=== PATIENT | female | born 2000 | race Caucasian/White ===

== ENCOUNTER 2020-08-29 11:57 | Outpatient (REF) | payer MEDICAID, SELFPAY ==
[2020-08-31 14:27] LABS: H Pylori Breath Test NOT DETECTED (NOT DETECTED)
== END 2020-08-29 11:58 | disposition home or self-care (01) ==
LOC: HO.LNP 11:57
PROVIDERS: Visit Provider Internal Medicine Gastroenterology
DX: Z11.0 Encounter for screening for intestinal infectious diseases (principal)
CPT/HCPCS: 83013; 99211

== ENCOUNTER → 2020-10-10 13:23 | Outpatient (BNVA) | payer MEDICAID, SELFPAY | PROVIDERS: Visit Provider Internal Medicine Gastroenterology ==

== ENCOUNTER → 2021-01-02 11:39 | Outpatient (BNVA) | payer MEDICAID, SELFPAY | PROVIDERS: Visit Provider Internal Medicine Gastroenterology | DX: R13.10 Dysphagia, unspecified (principal); H53.2 Diplopia; R51.9 Headache, unspecified; G89.29 Other chronic pain | CPT/HCPCS: 99212 ==

== ENCOUNTER 2021-01-05 10:10 | Outpatient (REF) | payer MEDICAID, SELFPAY | END 2021-01-05 10:11 | disposition home or self-care (01) | LOC: HO.LAB 10:10 | PROVIDERS: PCP Nurse Practitioner Primary Care; Visit Provider Internal Medicine Gastroenterology | DX: R13.10 Dysphagia, unspecified (principal) | CPT/HCPCS: 36415; 86003 ==

== ENCOUNTER 2021-01-26 18:08 | Outpatient (REF) | payer MEDICAID, SELFPAY | END 2021-01-26 18:09 | disposition home or self-care (01) | LOC: HO.MRI 18:08 | PROVIDERS: Visit Provider Internal Medicine Gastroenterology | DX: Z13.89 Encounter for screening for other disorder (principal) ==

== ENCOUNTER 2021-04-18 11:01 | Outpatient (REF) | payer MEDICAID, SELFPAY ==
--- NOTE | ~2021-04-18 | MR_ITS ---
EXAMINATION: MR BRAIN WITHOUT AND WITH CONTRAST CLINICAL INFORMATION: Diplopia. COMPARISON: None. TECHNIQUE: Multiplanar, multisequence imaging of the brain was performed before and after the intravenous administration of 5.5 mL of Gadavist. Slightly limited examination with motion artifacts. FINDINGS: No diffusion abnormalities are identified to suggest an acute infarct. The ventricles are normal in size. No mass effect or midline shift is seen. No brain parenchymal signal abnormality is noted. No extra-axial fluid collections are seen. The brainstem and cerebellum are normal. There is no abnormal parenchymal or leptomeningeal enhancement. The pituitary axis structures and suprasellar cistern appear normal. The gradient refocused acquisition is normal. 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 The craniovertebral junction, marrow signal, and midline structures are normal. The major intracranial flow voids at the level of the tangirnaq of [place] are preserved. The dural venous sinus flow voids are maintained. The mastoid air cells are well aerated. Mild ethmoid sinus mucosal thickening noted. MR/MR head/brain wo/w con IMPRESSION: No acute process. Normal slightly limited MRI of the brain with motion artifacts.
== END 2021-04-18 11:02 | disposition home or self-care (01) ==
LOC: HO.MRI 11:01
PROVIDERS: PCP Nurse Practitioner Primary Care; Visit Provider Internal Medicine Gastroenterology
DX: H53.2 Diplopia (principal); R51.9 Headache, unspecified; R13.10 Dysphagia, unspecified; G89.29 Other chronic pain
CPT/HCPCS: 70553; A9585

== ENCOUNTER 2021-06-21 16:29 | Emergency (ER) | payer MEDICAID, SELFPAY ==
--- NOTE | ~2021-06-21 | XR_ITS ---
EXAMINATION: XR HAND, LEFT CLINICAL INFORMATION: Knife puncture COMPARISON: None TECHNIQUE: PA, lateral, and oblique views of the left hand. FINDINGS: Visualized portion of the distal radius and ulna demonstrate no fracture. Carpal rows are well-maintained. No carpal, metacarpal or phalangeal fracture. No focal soft tissue swelling. No appreciable degenerative changes. No radiopaque foreign body. XR/XR hand LT 2V IMPRESSION: Unremarkable radiographs of the left hand.
[2021-06-21 17:00] VITALS: BP 102/40; PULSE 68; RESP 18; TEMP 36.8; O2SAT 98; BMI 23.6
--- NOTE | 2021-06-21 19:23 | ED.WOUNDLAC ---
HPI - Wound/Laceration General Chief Complaint: Wound/Laceration Stated Complaint: hand laceration Source: patient Mode of arrival: ambulatory Limitations: no limitations History of Present Illness HPI narrative: 20-year-old female presents with puncture wound to the left thenar process. Patient was trying to open a package, slipped with a knife. Does not recall when her last Tdap vaccine was given. Onset (ago): hour(s) (Within the hour of arrival) Extremity Location: left: hand Place: home Patient tetanus UTD: No Context: accidental Associated symptoms: pain Treatments prior to arrival: bandage Related Data Previous Rx's Medication Instructions Recorded esomeprazole magnesium 40 mg 40 mg PO DAILY 30 Days #30 cap 01/02/21 capsule,delayed release metoclopramide HCl 5 mg/5 mL oral 5 mg PO BID #500 ml 01/02/21 solution sucralfate 100 mg/mL oral 10 ml PO BID #420 ml 01/02/21 suspension (Carafate) metoclopramide HCl 5 mg tablet 5 mg PO BID #60 tab 02/07/21 Allergies Allergy/AdvReac Type Severity Reaction Status Date / Time No Known Allergies Allergy Verified 06/21/21 17:00 [No Known Allergies*] Review of Systems Review of Systems: Constitutional: No Fever, No Chills ENT/Mouth: No Ear Pain, No Hoarseness, No sore throat Eyes: No Eye Pain, No Swelling, No Redness, No Foreign Body Cardiovascular: No Chest Pain, No SOB Respiratory: No Cough, No Dyspnea Gastrointestinal: No Nausea, No Vomiting, No Diarrhea, No abdominal Pain Genitourinary: No Dysuria, No Hematuria Musculoskeletal: positive left hand pain, No Myalgias, No Joint Swelling Skin: Positive laceration to the left thenar process, No rash Neuro: No Weakness, No Numbness, No Paresthesias, No Loss of Consciousness, No Dizziness, No Headache Psych: No Anxiety/Panic, No Depression Heme/Lymph: no easy bruising, no Lymphadenopathy Endocrine: No Polyuria, No Polydipsia Yes all other systems are reviewed and are negative [facility] Past Medical History Attestation statement: The following information was validated with the patient. Source: old records reviewed Surgical History History of esophagogastroduodenoscopy (EGD) Family History Family History Father Prostate CA Social History Social History Alcohol intake: never Substance Use Type: Marijuana Advance Directives: No Patient : No Physical Exam Vital Signs: Vital Signs: Last Vital Signs Temp 98.9 F 06/21/21 20:01 Pulse 68 06/21/21 20:01 Resp 18 06/21/21 17:00 BP 135/54 L 06/21/21 20:01 Pulse Ox 100 06/21/21 20:01 Body Mass Index 23.6 Appearance: Alert. Oriented X3. No acute distress. Eyes: Pupils equal, round and reactive to light. Sclera nonicteric. ENT: Pharynx normal. Moist mucous membranes. Neck: Normal inspection. Neck supple. CVS: Normal heart rate and rhythm. Pulses normal. Respiratory: No respiratory distress. Breath sounds normal. Abdomen: Soft and nontender. Skin: Skin warm and dry. Normal skin color. Normal skin turgor. Extremities: 2 cm puncture wound to the left thenar process. Full range of motion to all digits and wrist strength 5/5 to all extremities. Tender to palpation. Neuro: No motor deficit. No sensory deficit. Cranial nerves 2-12 intact. Course Course Course Narrative: 20-year-old female presents with puncture wound to the left thenar process. Is able to move all extremities against resistance, brisk capillary refill. Patient has full range of motion, low indication of tendon injury or laceration. Will order x-rays, and laceration repair. Will update Tdap vaccine at this time. No indication of foreign body. Prepped and draped in sterile fashion. Irrigated with copious amounts of normal saline. Three sutures applied. Please refer to procedure note for full details. Patient tolerated procedure well. Brisk capillary refill and equal pulses continue status post suture repair. Patient agrees to follow-up with hand surgery. Patient verbalized understanding of and agrees to plan of care discharge home. MDM - Wound/Laceration Differential Diagnosis Differential diagnosis: Likely laceration Medical Records Attestation: I reviewed the patient's medical records. Lab Data Attestation: I reviewed the patient's lab results. Imaging Data Left hand: Attestation: I personally reviewed and interpreted this imaging study as follows: Radiologist's impression: EXAMINATION: XR HAND, LEFT CLINICAL INFORMATION: Knife puncture? COMPARISON: None? TECHNIQUE: PA, lateral, and oblique views of the left hand. FINDINGS: Visualized portion of the distal radius and ulna demonstrate no fracture. Carpal rows are well-maintained. No carpal, metacarpal or phalangeal fracture. No focal soft tissue swelling. No appreciable degenerative changes. No radiopaque foreign body.? XR/XR hand LT 2V IMPRESSION: Unremarkable radiographs of the left hand. Procedures Laceration Laceration 1: Site: hand Side (If applicable): left Size (cm): 2 Description: linear Depth: simple, single layer Local Anesthetic: lidocaine 2% Amount of anesthesia used (mL): 3 Pre-repair: wound explored, irrigated extensively and deep structures intact Skin layer closed with: nylon Size (cm): 5-0 Number of sutures: 4 Technique: simple, interrupted Discharge Plan Discharge Clinical Impression: Laceration Patient Disposition: Home, Self-Care Instructions: Care For Your Stitches (ED), Laceration (ED) Additional Instructions: You were evaluated for puncture wound to the left hand. We applied for sutures. Please follow-up with Orthopedics and Hand specialist. Please return in 10 days to have sutures removed. Use Tylenol and Motrin as needed for pain management. Thank you for choosing this emergency department for evaluation. Please follow-up with primary care physician as needed. Return to the emergency department for any new, concerning, or worsening symptoms. Prescriptions: No Action metoclopramide HCl 5 mg tablet 5 mg PO BID Qty: 60 RF: 0 esomeprazole magnesium 40 mg capsule,delayed release(DR/EC) 40 mg PO DAILY 30 Days Qty: 30 RF: 3 sucralfate [Carafate] 100 mg/mL suspension 10 ml PO BID Qty: 420 RF: 2 metoclopramide HCl 5 mg/5 mL solution 5 mg PO BID Qty: 500 RF: 0 Referrals: Stefany Jaramillo MD [Physician] - 2 days (Left thenar puncture) Stand Alone Forms: Work/School Release Interventions: ED Discharge Assessment Last Done: 06/21/21 20:47 Discharge Date/Time: 06/21/21 20:48
[2021-06-21] MEDS: Diphth,Pertus(ACell),Tet Adult 0.5 ML SYRINGE IM (19:38)
[2021-06-21] MEDS: Lidocaine HCl 2 % MPF 5 ML VIAL SUBCUT (19:38)
[2021-06-21 20:01] VITALS: BP 135/54; PULSE 68; TEMP 37.2; O2SAT 100
== END 2021-06-21 20:48 | disposition home or self-care (01) ==
PROVIDERS: Emergency Provider Emergency Medicine
DX: S61.412A Laceration without foreign body of left hand, initial encounter (principal); W26.0XXA Contact with knife, initial encounter; Y93.9 Activity, unspecified; Y92.009 Unspecified place in unspecified non-institutional (private) residence as the place of occurrence of the external cause; Y99.9 Unspecified external cause status
CPT/HCPCS: 12001; 73120; 90471; 90715; 99283; 99284

== ENCOUNTER 2021-07-06 11:24 | Emergency (ER) | payer MEDICAID, SELFPAY ==
[2021-07-06 12:15] VITALS: BP 95/55; PULSE 69; RESP 18; TEMP 36.6; O2SAT 97; BMI 23.8
--- NOTE | 2021-07-06 12:29 | ED_ITS ---
HPI - Recheck/Abnormal Lab/Rx General Chief Complaint: Wound/Laceration Stated Complaint: Suture Removal Time Seen by Provider: 07/06/21 12:26 Source: patient Mode of arrival: ambulatory Limitations: no limitations History of Present Illness complaint: suture/staple removal Initial visit (ago): week(s) (2 weeks and a half) Initial visit for: laceration Returns today for: staple/stitch removal Symptoms since prior visit: no new symptoms Context: planned re-check Associated symptoms: none Related Data Previous Rx's Medication Instructions Recorded esomeprazole magnesium 40 mg 40 mg PO DAILY 30 Days #30 cap 01/02/21 capsule,delayed release metoclopramide HCl 5 mg/5 mL oral 5 mg PO BID #500 ml 01/02/21 solution sucralfate 100 mg/mL oral 10 ml PO BID #420 ml 01/02/21 suspension (Carafate) metoclopramide HCl 5 mg tablet 5 mg PO BID #60 tab 02/07/21 Allergies Allergy/AdvReac Type Severity Reaction Status Date / Time No Known Allergies Allergy Verified 06/21/21 17:00 [No Known Allergies*] Review of Systems Review of Systems: Constitutional : No Fever, No Chills, Cardiovascular : No Chest Pain, No SOB Respiratory : No Dyspnea Gastrointestinal : No abdominal pain Musculoskeletal : No Joint Swelling Skin : positive healing skin laceration, no new skin laceration, No Foreign bodies, No rash, No surrounding erythema Neuro : No Weakness, No Numbness/tingling Psych : No SI/HI/thoughts of self injury Yes all other systems are reviewed and are negative [facility] Past Medical History Attestation statement: The following information was validated with the patient. Surgical History History of esophagogastroduodenoscopy (EGD) Family History Family History Father Prostate CA Social History Social History Alcohol intake: never Substance Use Type: Marijuana Advance Directives: No Patient : No Physical Exam Vital Signs: Vital Signs: Last Vital Signs Temp 97.9 F 07/06/21 12:15 Pulse 69 07/06/21 12:15 Resp 18 07/06/21 12:15 BP 95/55 L 07/06/21 12:15 Pulse Ox 97 07/06/21 12:15 Body Mass Index 23.8 vital signs have been reviewed as normal and appeared to be correct. Blood pressure normal Heart rate normal. Respiration rate normal. Temperature normal. Oxygen saturation normal. Appearance: Alert. Oriented X3. No acute di stress. Head: Normal external exam. Normocephalic. Atraumatic. Eyes: PERRLA. EOMI. Conjunctiva and sclera normal. Eyelids normal. ENT: Pharynx normal. Uvula midline. Moist mucous membranes. Neck: Normal inspection. Neck supple. FROM. CVS: Normal heart rate and rhythm. Respiratory: No respiratory distress. Painless inspiration. Skin: Skin warm and dry. Normal skin color. Normal skin turgor. To left hand thenar aspect patient has [address] and wound is completely healed no surrounding erythema/fluctuance noted. No rashes/lesions/lacerations noted. Extremities: No lower extremity edema. Extremities exhibit normal range of motion. Extremities nontender. Neuro: Oriented X 3. No motor deficit. No sensory deficit. Reflexes normal. Normal steady gait. No focal neuro deficits noted. Vascular: + radial pulses/+ 2 distal pedal pulses/+2 dorsalis pedis b/l. Normal cap refill. No cyanosis noted to upper extremity nails and lower extremity toes nails. Course Course Course Narrative: Patient now status post suture removal removed 3 sutures. Patient tolerated procedure well. No signs of infection. Will DC home instructions return if any new or worsening symptoms follow-up with primary care provider. Patient understands agrees with this plan. MDM - Recheck/Abnormal Lab/Rx Medical Records Attestation: I reviewed the patient's medical records. Discharge Plan Discharge Clinical Impression: Visit for suture removal Patient Disposition: Home, Self-Care Instructions: Stitches Removal (ED) Prescriptions: No Action metoclopramide HCl 5 mg tablet 5 mg PO BID Qty: 60 RF: 0 esomeprazole magnesium 40 mg capsule,delayed release(DR/EC) 40 mg PO DAILY 30 Days Qty: 30 RF: 3 sucralfate [Carafate] 100 mg/mL suspension 10 ml PO BID Qty: 420 RF: 2 metoclopramide HCl 5 mg/5 mL solution 5 mg PO BID Qty: 500 RF: 0 Referrals: Renata Villarreal NP [Primary Care Provider] - 2 days Print Language: German
== END 2021-07-06 12:55 | disposition home or self-care (01) ==
PROVIDERS: Emergency Provider Emergency Medicine; PCP Nurse Practitioner Primary Care
DX: Z48.02 Encounter for removal of sutures (principal)
CPT/HCPCS: 99283

== ENCOUNTER 2021-09-03 13:56 | Outpatient (REF) | payer MEDICAID, SELFPAY ==
[2021-09-03 16:12] LABS: COVID-19 Test Negative (Negative); IDNOW Serial# 16C4AD1C
== END 2021-09-03 13:57 | disposition home or self-care (01) ==
LOC: HO.LAB 13:56
PROVIDERS: Visit Provider Internal Medicine
DX: Z20.822 Contact with and (suspected) exposure to COVID-19 (principal)
CPT/HCPCS: 36415; 87635; C9803

== ENCOUNTER 2021-10-03 15:28 | Outpatient (REF) | payer MEDICAID, SELFPAY ==
[2021-10-03 15:55] LABS: COVID-19 Test Negative (Negative)
== END 2021-10-03 15:29 | disposition home or self-care (01) ==
LOC: HO.LAB 15:28
PROVIDERS: Visit Provider Internal Medicine
DX: Z20.822 Contact with and (suspected) exposure to COVID-19 (principal)
CPT/HCPCS: 87635; C9803

== ENCOUNTER 2021-11-07 14:42 | Outpatient (REF) | payer MEDICAID, SELFPAY ==
[2021-11-07 15:37] LABS: COVID-19 Test Negative (Negative)
== END 2021-11-07 14:43 | disposition home or self-care (01) ==
LOC: HO.LAB 14:42
PROVIDERS: Visit Provider Internal Medicine
DX: Z20.822 Contact with and (suspected) exposure to COVID-19 (principal)
CPT/HCPCS: 87635; C9803

== ENCOUNTER 2022-06-07 21:48 | Emergency (ER) | payer MEDICAID, SELFPAY ==
[2022-06-07 22:22] VITALS: BP 100/60; PULSE 75; RESP 18; TEMP 36.9; O2SAT 100
--- NOTE | 2022-06-07 22:27 | ED.WOUNDLAC ---
HPI - Wound/Laceration General Chief Complaint: Wound/Laceration Stated Complaint: needs stitches removed Time Seen by Provider: 06/07/22 21:50 Source: patient Mode of arrival: ambulatory Limitations: no limitations History of Present Illness HPI narrative: This is a 21-year-old female presenting for suture removal. Patient tells me she had sutures placed in [place] about a week ago to her forehead. She was told to get them out a week. Denies any complaints. Denies fevers, chills, numbness, tingling. Reports that is healing nicely. Related Data Previous Rx's Medication Instructions Recorded esomeprazole magnesium 40 mg 40 mg PO DAILY 30 days #30 caps 01/02/21 capsule,delayed release metoclopramide HCl 5 mg/5 mL oral 5 mg (5 mL) PO BID #500 mL 01/02/21 solution sucralfate 100 mg/mL oral 10 ml PO BID #420 mL 01/02/21 suspension (Carafate) metoclopramide HCl 5 mg tablet 5 mg PO BID #60 tabs 02/07/21 Allergies Allergy/AdvReac Type Severity Reaction Status Date / Time No Known Allergies Allergy Verified 06/21/21 17:00 [No Known Allergies*] Review of Systems Review of Systems: Constitutional : No Fever, No Chills, Cardiovascular : No Chest Pain, No SOB Respiratory : No Dyspnea Gastrointestinal : No abdominal pain Musculoskeletal : No Joint Swelling Skin : No rash, positive skin laceration Neuro : No Weakness, No Numbness Psych : No SI/HI Yes all other systems are reviewed and are negative [facility] Past Medical History Attestation statement: The following information was validated with the patient. Source: old records reviewed and nursing notes reviewed Surgical History History of esophagogastroduodenoscopy (EGD) Family History Family History Father Prostate CA Social History Social History Alcohol intake: never Substance Use Type: Marijuana Advance Directives: No Advance Directives Information Provided: No Physical Exam Vital Signs: Vital Signs: Last Vital Signs Temp 98.5 F 09/23/22 22:22 Pulse 75 06/07/22 22:22 Resp 18 06/07/22 22:22 BP 100/60 06/07/22 22:22 Pulse Ox 100 06/07/22 22:22 O2 Del Method 06/07/22 22:22 BMI result Body Mass Index 22.6 vss Appearance: Alert.? Oriented X3.? No acute distress.? Head: Normocephalic, atraumatic, no step-offs or deformities Eyes: Pupils equal, round and reactive to light.? CVS: Normal heart rate and rhythm.? Pulses normal.? Respiratory: No respiratory distress.? Breath sounds normal.? Abdomen: Soft and nontender.? Skin: Skin warm and dry.? Normal skin color.? Normal skin turgor.?+ healing lac to right side of forehead 1 cm. Extremities: No lower extremity edema.? No calf ttp. 5/5 strength to bilateral upper and lower extremities Neuro: Oriented X 3.? No motor deficit.? No sensory deficit. CN 2-12 intact Course Reevaluation(s) Reevaluation #1: Three sutures were successfully removed. Wound healing nicely. No signs of infection. At this time patient will be discharged home with prompt PCP follow-up. Time: 22:31 MDM - Wound/Laceration MDM Narrative Medical decision making narrative: 2229 21-year-old female presents for suture removal. Physical examination with a nicely healing wound to the forehead. With 3 intact sutures. No signs of infection. Plan at this time is suture removal Medical Records Attestation: I reviewed the patient's medical records. Lab Data Attestation: I reviewed the patient's lab results. Critical Care Time Critical Care Time Critical Care Time: No Discharge Plan Discharge Clinical Impression: Encounter for removal of sutures Patient Disposition: Home, Self-Care Instructions: Stitches Removal (ED) Additional Instructions: Take your medications as prescribed. If you were prescribed antibiotics today, it is important that you take your medication to their entirety, do not skip any doses, do not finish them early. Follow-up with your primary care provider this week. Return to the emergency department with new or worsening symptoms. Such as fevers, chills, chest pain, shortness of breath, nausea, vomiting, dizziness, headache, vision changes, lethargy In case of emergency call 911 Prescriptions: No Action metoclopramide HCl 5 mg tablet 5 mg PO BID Qty: 60 0RF esomeprazole magnesium 40 mg capsule,delayed release(DR/EC) 40 mg PO DAILY 30 Days Qty: 30 3RF Rx Instructions: Take one capsule by mouth daily: open capsule and sprinkle granules on applesauce. sucralfate [Carafate] 100 mg/mL suspension 10 ml PO BID Qty: 420 2RF metoclopramide HCl 5 mg/5 mL solution 5 mg PO BID Qty: 500 0RF Referrals: Physician,Unknown J [Physician] - 2 days Stand Alone Forms: Work/School Release
[2022-06-07 22:28] VITALS: BMI 22.6
== END 2022-06-07 22:44 | disposition home or self-care (01) ==
PROVIDERS: Emergency Provider Student in an Organized Health Care Education/Training Program
DX: Z48.02 Encounter for removal of sutures (principal); S01.81XD Laceration without foreign body of other part of head, subsequent encounter; X58.XXXD Exposure to other specified factors, subsequent encounter
CPT/HCPCS: 99282; 99283

== ENCOUNTER 2022-08-16 23:54 | Emergency (ER) | payer MEDICAID, SELFPAY ==
--- NOTE | ~2022-08-16 | XR_ITS ---
EXAMINATION: XR CHEST CLINICAL INFORMATION: Shortness of breath COMPARISON: 12/29/2019 TECHNIQUE: 2 views of the chest were obtained. FINDINGS: The lungs are clear with no focal consolidation. No evidence of pneumothorax, pulmonary edema, or pleural effusions. The cardiomediastinal silhouette is unremarkable. No acute osseous findings. XR/XR chest 2V IMPRESSION: No acute cardiopulmonary findings.
--- NOTE | ~2022-08-16 | CT_ITS ---
EXAMINATION: CT ANGIOGRAM OF THE CHEST WITH AND WITHOUT CONTRAST (CT PULMONARY ANGIOGRAM FOR PE) CLINICAL INFORMATION: Reason for Exam Pleuritic chest pain, elevated D-dimer rule out PE COMPARISON: Chest x-ray from the use of a TECHNIQUE: Prior to contrast administration, noncontrast localization images were obtained. Subsequently, multidetector volumetric imaging was performed from the thoracic inlet to below the diaphragms following the administration of 65 mL Omnipaque 350 intravenous contrast. No contrast reaction reported Sagittal, coronal, and MIP oblique sagittal reformatted images were obtained on the CT workstation, uploaded to PACS, and reviewed. This CT examination was performed using dose optimization techniques as appropriate, variously including the following: *Automated exposure control *Adjustment of mA and/or kV according to patient size (this includes techniques or standardized protocols for targeted exams where dose is matched to indication/reason for exam; i.e. extremities or head) *Use of iterative reconstruction technique Total exam dose-length product 160 mGy-cm FINDINGS: QUALITY OF STUDY/CONTRAST BOLUS: Satisfactory. PULMONARY ARTERIES: No central or segmental pulmonary emboli. THORACIC AORTA: No aneurysm or dissection. LUNG: No focal consolidation, nodules or masses. PLEURA: No pleural effusion or pneumothorax. MEDIASTINUM: The visualized thyroid gland is unremarkable. Small amount of residual thymic tissue is suspected in the anterior mediastinum. There are subcentimeter mediastinal lymph nodes within the range of normal variation. Cardiac size is within normal limits; no pericardial effusion. No evidence of septal bowing or right heart strain. CHEST WALL/AXILLA: No axillary or internal mammary lymphadenopathy. OSSEOUS STRUCTURES: No acute or suspicious osseous abnormality. UPPER ABDOMEN: Unremarkable. No reflux of contrast into the hepatic veins to suggest elevated right heart pressures. CT/CT angio chest PE protocol IMPRESSION: No pulmonary embolus identified. VTE: negative
[2022-08-17 00:17] VITALS: BP 125/84; PULSE 66; RESP 18; TEMP 36.1; O2SAT 99; BMI 22.1
--- OUTSIDE RECORDS SUMMARY | 2022-08-17 00:37 | XMS_ITS | Continuity of Care Document ---
:2000 Author Organization [facility] Address [address] [place] [id number]- Care Team Providers Name Role Phone Dru HINDS, Scott Wilson Primary Care Physician Encounter [facility] Date(s): 01/25/21 - 03/02/[address] [id number] Attending Physician: Scott Gonsales MD Admitting Physician: Scott Gonsales MD Referring Physician: Kilo Holbrook MD
--- OUTSIDE RECORDS SUMMARY | 2022-08-17 00:37 | XMS_ITS | Continuity of Care Document ---
:2000 Author Organization [facility] Address [address] [place] [id number]- Care Team Providers Name Role Phone Dru HINDS, Scott Wilson Primary Care Physician Encounter [facility] Date(s): 01/31/21 - 03/02/[address] [id number] Attending Physician: Corinne Hunter Admitting Physician: Corinne Hunter Referring Physician: Corinne Hunter
--- OUTSIDE RECORDS SUMMARY | 2022-08-17 00:37 | XMS_ITS | Continuity of Care Document ---
:2000 Author Organization [facility] Address [address] [place] [id number]- Care Team Providers Name Role Phone Dru HINDS, Scott Wilson Primary Care Physician Encounter [facility] Date(s): 03/31/20 - 06/08/[address] [id number]- [facility] Attending Physician: Radha Beth MD Admitting Physician: Radha Beth MD Referring Physician: Kilo Holbrook MD
[2022-08-17 00:49] VITALS: BP 110/66; PULSE 88; RESP 18; TEMP 37.1; O2SAT 99
[2022-08-17 02:14] VITALS: BP 116/68; PULSE 86; RESP 18; TEMP 36.9; O2SAT 100
--- NOTE | 2022-08-17 03:10 | ED.GENADULT ---
HPI - General Adult General Chief complaint: General Medical Stated complaint: Flank pain Time Seen by Provider: 08/17/22 03:09 Source: patient Mode of arrival: ambulatory Limitations: no limitations History of Present Illness HPI narrative: 21-year-old female who presents emergency department for evaluation of bilateral rib pain. She states that the pain started 4 days prior. He came on suddenly. She points to both her left and right anterior chest when asked to localize the pain. She states the pain is a constant, sharp pain which is worse with breathing and with movement. The pain is 10/10. She states she feels short of breath and has dyspnea on exertion associated with the pain. She has not noticed any pain or swelling in her lower extremities. She denies being on control pills. She did travel to [place] by car which was a 4 hour trip on (8 days prior to evaluation). She states that 2 weeks prior she did have a cold with rhinorrhea, sore throat and a cough. She states that her symptoms have improved but she still has occasional nonproductive cough. Patient states she does have dysphagia and has been worked up in the past, she is not able to swallow solids but can swallow liquids. Related Data Previous Rx's Medication Instructions Recorded acetaminophen 160 mg/5 mL oral 640 mg (20 mL) PO Q6H PRN fever or 08/17/22 suspension (Children's Tylenol) pain #360 mL ibuprofen 100 mg/5 mL oral 400 mg (20 mL) PO Q6H PRN fever or 08/17/22 suspension (Children's Motrin) pain #473 mL Allergies Allergy/AdvReac Type Severity Reaction Status Date / Time No Known Allergies Allergy Verified 08/17/22 00:21 [No Known Allergies*] Review of Systems Review of Systems: Yes all other systems are reviewed and are negative [facility] Past Medical History [facility] Narrative: Past medical history: Dysphagia, chronic headaches. Past surgical history: None. Social history: She denies tobacco, alcohol and drug use. Surgical History History of esophagogastroduodenoscopy (EGD) Family History Family History Father Prostate CA Social History Social History Alcohol intake: never Smoked in Last 30 Days: No Use of substances other than those prescribed or required for medical reasons: No Substance Use Type: Marijuana Advance Directives: No Advance Directives Information Provided: Yes Patient : No Physical Exam ED Vital Signs: Vital Signs - 24 hr 08/17/22 00:17 08/17/22 00:49 08/17/22 02:14 Temperature 97 F 98.8 F 98.5 F Pulse Rate 66 88 86 Respiratory Rate 18 18 18 Blood Pressure 125/84 110/66 116/68 Pulse Oximetry 99 99 100 Oxygen Delivery Method Room Air Room Air 08/17/22 05:41 Temperature 98.2 F Pulse Rate 77 Respiratory Rate 16 Blood Pressure 119/60 Pulse Oximetry 100 Oxygen Delivery Method Room Air BMI result Body Mass Index 22.1 Const General: cooperative and no acute distress Orientation/consciousness: oriented to person and oriented to place Limitations: no limitations HENMT Head: Yes normal to inspection, Yes normocephalic and Yes atraumatic Ears: external ears normal General nose exam: Normal external nose present Face and sinus: Yes normal facial exam Mouth: Normal oral and palatal mucosa present Throat: Yes posterior oropharynx normal Eyes General: appearance normal, both eyes and all related structures Pupils: Equal, round and reactive pupils present Neck Neck: Yes normal visual inspection, Yes no lymphadenopathy, Yes trachea midline and Yes supple Chest Chest palpation & inspection: normal inspection of the chest and normal palpation of entire chest wall Resp Effort & Inspection: normal respiratory effort and able to speak in complete sentences Auscultation: clear to auscultation bilaterally Cardio Rate: regular rate Rhythm: regular rhythm Heart sounds: S1 normal heart sound present, S2 normal heart sound present and no murmurs GI Inspection: Yes normal to inspection Palpation (GI): Soft to palpation, nontender and no guarding Auscultation: normal bowel sounds General: Yes no CVA tenderness Back/Spine/Pelvis Back: no CVA tenderness Skin General skin exam: no rashes or lesions noted Neuro General: oriented to person and oriented to place Cranial nerves: Yes CN's II-XII intact bilaterally and Yes Equal, round and reactive pupils present Cognition (Neuro): normal cognition Motor exam (neuro): 5/5 motor strength present throughout Extrem General: Yes normal to inspection Psych Appearance: grossly normal Speech and movement: Normal speech and movement present Affect: normal affect Attitude: cooperative Thought process: Normal thought process present Thought content: Normal thought content present Course Course Course Narrative: 21-year-old female who presents emergency department for evaluation of 4 days of bilateral pleuritic chest pain with shortness of breath and dyspnea on exertion. She denies lower extremity pain or swelling but did go on a 4 hour car trip to [place] 8 days prior for Thanksgiving. The patient did have an upper respiratory infection 2 weeks prior and still has residual cough. Patient's vital signs were normal. Patient's physical examination was unremarkable. Chest x-ray revealed no acute findings. Concerned that the patient may have pulmonary embolism therefore I ordered CBC, CMP, PT/INR, PTT, D-dimer. Patient was given Toradol 15 mg IV for pleuritic chest pain. 0447: Laboratory evaluation: Elevated WBC 20613, anemia with an H&H of 10 and 31.8 with a normal MCV. Patient's D-dimer elevated 2318. Given the patient's elevated D-dimer I will order a CT scan pulmonary angiogram PE protocol. 0703: CT pulmonary angiogram revealed no acute pulmonary embolism which is reassuring. Patient's presentation is consistent with pleurisy most likely caused by viral infection. Patient cannot swallow pills and was given a prescription for children's ibuprofen 100 mg per 5 mL, 20 mL every 6 hours as needed for pain and children's acetaminophen 160 mg per 5 mL, 20 mL every 4 hours as needed for pain. She was given printed and verbal instructions and discharged home. Medications Administered Discontinued Medications Generic Name Dose Route Start Last Admin Trade Name Freq PRN Reason Stop Dose Admin Iohexol 65 ml 08/17/22 05:29 08/17/22 05:30 Iohexol 350 Mg/Ml 100 Ml Infus..Btl IV 08/17/22 05:30 65 ml ONCE ONE Administration Ketorolac Tromethamine 15 mg 08/17/22 03:20 08/17/22 03:56 Ketorolac Tromethamine 15 Mg/Ml Vial IVPUSH 08/17/22 03:21 15 mg ONCE STA Administration Medical Decision Making Lab Data Result diagrams: 08/17/22 03:52 08/17/22 03:51 Labs: Lab Results 08/17/22 08/17/22 08/17/22 Range/Units 03:51 03:51 03:52 WBC 11.5 H (4.8-10.8) X10*3/uL RBC 3.93 L (4.20-5.50) X10*6/uL Hgb 10.1 L (12.0-16.0) g/dl Hct 31.8 L (37.0-47.0) % MCV 80.9 (80.0-98.0) fL MCH 25.7 L (27.0-33.0) pg MCHC 31.8 (31.0-35.0) g/dl RDW 14.6 (11.0-16.0) % Plt Count 485 H (160-400) X10*3/uL MPV 9.5 (9.4-12.3) fL Immature Gran % (Auto) 0.3 (0.0-0.4) % Neut % (Auto) 61.7 (45-73) % Lymph % (Auto) 26.0 (20-40) % Jerome % (Auto) 6.6 (2-11) % Eos % (Auto) 4.9 H (0-4) % Baso % (Auto) 0.5 (0-2) % Lymph # (Auto) 3.0 (1.2-4.9) X10*3/uL Jerome # (Auto) 0.8 (0.1-1.2) X10*3/uL Eos # (Auto) 0.6 H (0.0-0.4) X10*3/uL Baso # (Auto) 0.1 (0.0-0.2) X10*3/uL Abs Immat Gran (auto) 0.04 H (0.00-0.03) X10*3/uL Absolute Neuts (auto) 7.1 (2.0-8.3) x10*3/uL Absolute Nucleated RBC 0.000 (0.0-0.012) X10*3/uL Nucleated RBC % (auto) 0.0 (0.0-0.2) /100WBC PT 11.2 (10.0-13.1) SEC INR 1.0 (0.9-1.1) APTT 28.0 (26.0-36.4) SEC D-Dimer High Sensitivty 2318 NG/ML Sodium 135 (135-145) mmol/L Potassium 3.9 (3.3-5.1) mmol/L Chloride 103 (96-108) mmol/L Carbon Dioxide 25 (22-29) mmol/L Anion Gap 11 L (12-20) BUN 7 L (9-16) mg/dL Creatinine 0.70 (0.5-1.4) mg/dL Estim Creat Clear Calc 95.1 Estimated GFR > 60 Random Glucose 86 (60-115) mg/dL Calcium 9.4 (8.4-10.2) mg/dL Total Bilirubin 0.2 (0.0-1.0) mg/dL AST 28 (5-31) U/L ALT 30 (0-31) U/L Alkaline Phosphatase 89 (39-117) U/L Total Protein 7.3 (6.5-8.0) g/dL Albumin 4.1 (3.5-5.0) g/dL Beta HCG, Quant < 2 mIU/mL Discharge Plan Discharge Clinical Impression: Pleurisy Patient Disposition: Home, Self-Care Instructions: Pleurisy (ED) Additional Instructions: The CT scan of your chest revealed no blood clots in your chest which is very reassuring Your symptoms are consistent with inflammation of the lining of the lungs most likely caused by a virus. This is called pleurisy. Pleurisy is treated with anti-inflammatory medications such as ibuprofen and pain medicine such as Tylenol. Take children's Motrin (ibuprofen) 100 mg per 5 mL, 20 mL every 6 hours as needed for pain. Take Children's Tylenol (acetaminophen) 160 mg per 5 mL, 20 mL every 4 hours as needed for pain. Follow-up with your doctor in 2 days. Please return to the emergency department if your symptoms get worse or if you develop any symptoms that are concerning to you. Prescriptions: New ibuprofen [Children's Motrin] 100 mg/5 mL suspension 400 mg PO Q6H PRN (Reason: fever or pain) Qty: 473 0RF acetaminophen [Children's Tylenol] 160 mg/5 mL suspension 640 mg PO Q6H PRN (Reason: fever or pain) Qty: 360 0RF
[2022-08-17 03:56] LABS: MANUAL DIFF FLAG NO
[2022-08-17] MEDS: Ketorolac Tromethamine 15 MG/ML VIAL IVPUSH (03:56)
[2022-08-17 03:57] LABS: Basophils Absolute Auto 0.1 X10*3/uL (0.0-0.2); Basophils Percent Auto 0.5 % (0-2); Eosinophils Absolute Auto 0.6 X10*3/uL (0.0-0.4); Eosinophils Percent Auto 4.9 % (0-4); Hematocrit 31.8 % (37.0-47.0); Hemoglobin 10.1 g/dl (12.0-16.0); Imm Gran Abs Auto 0.04 X10*3/uL (0.00-0.03); Imm Gran Pct Auto 0.3 % (0.0-0.4); Mean Corpuscular HGB Conc 31.8 g/dl (31.0-35.0); Mean Corpuscular Hemoglobin 25.7 pg (27.0-33.0); Mean Corpuscular Volume 80.9 fL (80.0-98.0); Mean Platelet Volume 9.5 fL (9.4-12.3); Monocytes Absolute Auto 0.8 X10*3/uL (0.1-1.2); Monocytes Percent Auto 6.6 % (2-11); Neutrophils Absolute Auto 7.1 x10*3/uL (2.0-8.3); Neutrophils Percent Auto 61.7 % (45-73); Platelet Count 485 X10*3/uL (160-400); Red Blood Count 3.93 X10*6/uL (4.20-5.50); Red Cell Distribution Width 14.6 % (11.0-16.0); White Blood Count 11.5 X10*3/uL (4.8-10.8)
[2022-08-17 04:04] LABS: Prothrombin Time 11.2 SEC (10.0-13.1)
[2022-08-17 04:06] LABS: D Dimer High Sensitivity 2318 NG/ML
[2022-08-17 04:59] LABS: Alanine Aminotransferase 30 U/L (0-31); Albumin Level 4.1 g/dL (3.5-5.0); Alkaline Phosphatase 89 U/L (39-117); Anion Gap 11 (12-20); Aspartate Amino Transferase 28 U/L (5-31); Bilirubin Total 0.2 mg/dL (0.0-1.0); Blood Urea Nitrogen 7 mg/dL (9-16); Calcium 9.4 mg/dL (8.4-10.2); Carbon Dioxide 25 mmol/L (22-29); Chloride 103 mmol/L (96-108); Creatinine Clr Calc Pharmacy 95.1; Estimated Glomerular Filt Rate > 60; Glucose Random 86 mg/dL (60-115); HCG Quantitative < 2 mIU/mL; Potassium 3.9 mmol/L (3.3-5.1); Sodium 135 mmol/L (135-145); Total Protein 7.3 g/dL (6.5-8.0)
[2022-08-17] MEDS: iohexoL 350 MG/ML 100 ML INFUS..BTL 65 ML IV (05:30)
[2022-08-17 05:41] VITALS: BP 119/60; PULSE 77; RESP 16; TEMP 36.8; O2SAT 100
== END 2022-08-17 07:24 | disposition home or self-care (01) ==
PROVIDERS: Emergency Provider Emergency Medicine Emergency Medical Services
DX: R09.1 Pleurisy (principal); R13.10 Dysphagia, unspecified; F12.90 Cannabis use, unspecified, uncomplicated
CPT/HCPCS: 36415; 71046; 71275; 80053; 84702; 85025; 85379; 85610; 85730; 96374; 99284; J1885; Q9967

== ENCOUNTER 2022-08-27 11:45 | Day surgery (SDC) | payer MEDICAID, SELFPAY ==
[2022-08-20 14:23] VITALS: BMI 24.5
--- NOTE | 2022-08-26 12:04 | HO.ANESPROP2 ---
Documented by User: Bonnie Briones NP 08/26/22 12:05 HPI - Anesthesia Eval Consult details Narrative: 21yo F for Upper Endo [facility] PMFSH Active Problems Active Problems: All Active Problems (Updated 08/20/22 @ 14:04 by Kat Taylor RN) COVID-19 (Acute) Dysphagia (Acute) Chronic headaches (Acute) Diplopia (Acute) Past Medical History Medical History Chronic headaches Dysphagia History of COVID-19 Family History Family History Father Prostate CA Surgical History Surgical History (Updated 08/20/22 @ 14:07 by Kat Taylor RN) History of esophagogastroduodenoscopy (EGD) Social History Social History Alcohol intake: never Patient Tobacco Use Status: Never used Tobacco Use of substances other than those prescribed or required for medical reasons: No Substance Use Type: Marijuana Are you DNR?: No Advance Directives: No Advance Directives Information Provided: Yes Meds Allergies Allergy/AdvReac Type Severity Reaction Status Date / Time No Known Allergies Allergy Verified 08/17/22 00:21 [No Known Allergies*] Home Medications Medication Instructions Recorded Confirmed Last Taken Type No Known Home Meds 08/27/22 08/27/22 Unknown History Exam Exam Date and Time: August 26, 2022 1204 Height,Weight and Vital Signs: Height 5 ft 1 in Weight 58.967 kg Pertinent Lab Results Pertinent Lab Results: Laboratory Tests 08/17/22 08/17/22 03:51 03:52 WBC 11.5 H Hgb 10.1 L Hct 31.8 L Plt Count 485 H Sodium 135 Potassium 3.9 Chloride 103 Carbon Dioxide 25 BUN 7 L Creatinine 0.70 Assessment and Plan Assessment Anesthesia Assessment: Chart Reviewed Documented by User: Paige Cornejo MD 08/27/22 12:32 [facility] Past Medical History Medical History Chronic headaches Dysphagia History of COVID-19 Functional capacity: independent ambulation Patient : No Family History Family History Father Prostate CA Family history of problems with anesthesia: No Surgical History Surgical History (Updated 08/20/22 @ 14:07 by Kat Taylor RN) History of esophagogastroduodenoscopy (EGD) History of Problems with Anesthesia: No Social History Social History Alcohol intake: never Patient Tobacco Use Status: Never used Tobacco Use of substances other than those prescribed or required for medical reasons: No Substance Use Type: Marijuana Are you DNR?: No Advance Directives: No Advance Directives Information Provided: Yes Meds Allergies Allergy/AdvReac Type Severity Reaction Status Date / Time No Known Allergies Allergy Verified 08/17/22 00:21 [No Known Allergies*] Home Medications Medication Instructions Recorded Confirmed Last Taken Type No Known Home Meds 08/27/22 08/27/22 Unknown History Exam Airway Mallampati Class: II TM Dist: >3cm Neck ROM: Full Heart: RRR Lungs: CTA Assessment and Plan Final Anesthetic Review Family History of Problems with Anesthesia: No History of Problems with Anesthesia: No ASA Class: II Final Preanesthetic Review: No Changes in Pt Med Stat, Meds/Allgs Chart Reviewed, Consent Obtained/Reviewed and Anes Risks/Benef Reviewed Patient Risk: Low Procedure Risk: Low Anesthetic Plan Anesthetic Plan: MAC: Disposition: Standard PACU
[2022-08-27 12:01] VITALS: BMI 20.7
--- NOTE | 2022-08-27 12:07 | MHC.SHP ---
Pre-Procedural Eval Section A Date of Service: 08/27/22 Section B Chief Complaint: GERD Relevant Family History (Specify if Yes): No Relevant Social History: Other (specify) (THC) Present Medications: see Short Stay Collaborative assessment Medical History: Significant History (Chronic headaches Dysphagia History of COVID-19) History of Previous Operations: No relevant previous surgery Allergies: Allergies Allergy/AdvReac Type Severity Reaction Status Date / Time No Known Allergies Allergy Verified 08/17/22 00:21 [No Known Allergies*] Review of Systems Sugical H&P ROS: Negative: Constitution, Cardiovascular, Respiratory, Neurological, Psychiatric, Hem-Onc, Allergic/Immunologic, Gastrointestinal, Genitourinary, Musculoskeletal, Integumentary, Endocrine and Eyes/Ears/Nose/Throat Exam Surgical H&P Exam: Normal: HEENT, Normal: Heart, Normal: Lungs, Normal: Extremities, Normal: Abdomen, Normal: Skin and Normal: Neurological Plan Diagnosis/Plan: Unchanged I have reviewed the history and physical and performed a pertinent physical examination on my patient. No changes have occurred unless specified. Time Spent With Patient Time: Total time managing care of this patient today ____ minutes.
[2022-08-27 12:09] VITALS: BP 110/69; PULSE 87; RESP 16; TEMP 36.4; O2SAT 100
[2022-08-27 12:13] LABS: UPreg QC Valid YES; Urine Pregnancy NEGATIVE (NEGATIVE)
--- NOTE | 2022-08-27 13:02 | W.PM.OPN ---
Operative Note Operative Note Date of Service: 08/27/22 Narrative: Procedure Description: EGD Indication: reflux Anesthesia: MAC FLEXIBLE TRANSORAL UPPER GASTROINTESTINAL ENDOSCOPY UPPER ENDOSCOPY Consent: Indications for the procedure and potential complications of bleeding, perforation, reaction to medications and missed diagnosis were discussed with the patient and informed consent was obtained. Instrument: Olympus GIF H 190 J mid size upper endoscope Monitoring: Vital signs and clinical assessment, continuous EKG monitoring, Pulse oximetry, Carbon Dioxide monitoring and blood pressure monitoring were done throughout the procedure. Procedure: The patient was placed in the left lateral decubitis position and pre-procedure medications were administered and a bite block was placed. The endoscope was inserted into the mouth and advanced under direct vision to the third part of duodenum. A careful inspection was made as the upper endoscope was withdrawn including a retroflexed examination of the proximal stomach; Findings and interventions are described below. Findings: Larynx:normal Esophagus: GE junction at 36 cm, diaphragm hiatus at 36 cm, bogginess and erythema at GEJ, bx taken as well as from proximal and distal esophagus, HIRSCH was attached at 30 cm. Balloon dilation to 19 mm at LEs and UES Stomach: Patchy gastric erythema and nodularity. Biopsies were obtained. Grade 2 flap valve on retroflexed examination of the cardia. Duodenum: Normal bulb and descending duodenum, bx taken Intervention: Biopsies as noted above, HIRSCH placement, balloon dilation Impression/Findings: esophagitis gastritis PLAN: await HIRSCH results and path if recurrent H pylori then treat
[2022-08-27 13:07] VITALS: BP 98/68; PULSE 88; RESP 16; TEMP 36.3; O2SAT 99
[2022-08-27 13:22] VITALS: BP 108/69; PULSE 88; RESP 16; O2SAT 99
[2022-08-27 13:37] VITALS: BP 109/68; PULSE 72; RESP 16; TEMP 36.3; O2SAT 100
--- NOTE | 2022-08-27 15:16 | HO.POSTANES ---
Post Anesthesia Evaluation Post Anesthesia Evaluation Vital Signs: Vital Signs Temp Pulse Resp BP Pulse Ox O2 Del Method 08/27/22 13:37 97.4 F 72 16 109/68 100 Room Air 08/27/22 13:22 88 16 108/69 99 Room Air 08/27/22 13:07 97.4 F 88 16 98/68 99 Room Air 08/27/22 12:09 97.5 F 87 16 110/69 100 Room Air Anesthesia: Monitored Mental Status: Awake Pain Control: Satisfactory Nausea/Vomiting: None Hydration: Adequate Anesthesia-Related Issues: No Anes. Related Issues
== END 2022-08-27 14:10 | disposition home or self-care (01) ==
PROVIDERS: Nurse Practitioner; PCP Registered Nurse; Visit Provider Internal Medicine Gastroenterology
PROC: (CPT 43249; principal; 2022-08-27 12:30)
DX: K21.9 Gastro-esophageal reflux disease without esophagitis (principal); R13.10 Dysphagia, unspecified; K29.50 Unspecified chronic gastritis without bleeding; K20.80 Other esophagitis without bleeding; K75.81 Nonalcoholic steatohepatitis (NASH); K44.9 Diaphragmatic hernia without obstruction or gangrene; R79.82 Elevated C-reactive protein (CRP); R51.9 Headache, unspecified; G89.29 Other chronic pain; H53.2 Diplopia; Z86.16 Personal history of COVID-19; F12.90 Cannabis use, unspecified, uncomplicated
CPT/HCPCS: 43249; 43239; 81025; 88305; 88342; C1726

== ENCOUNTER 2022-11-07 01:13 | Emergency (ER) | payer MEDICAID, SELFPAY ==
[2022-11-07 05:40] VITALS: BP 109/63; PULSE 67; RESP 20; TEMP 36.4; O2SAT 100; BMI 20.7
--- NOTE | 2022-11-07 05:42 | PC.NURSE ---
Pt arrived during down time at 03:52 at 11/07/2022.
--- NOTE | 2022-11-07 05:43 | ED.FEMALEGU ---
HPI - Female Genitourinary General Chief complaint: Urogenital-Female Time Seen by Provider: 11/07/22 05:39 Source: patient Mode of arrival: ambulatory Limitations: no limitations History of Present Illness HPI Narrative: Patient complaining of frequency for last 1 week also complaining of vaginal discharge for 1 week no history of STIs also complaining of some slight discomfort in lower abdomen no fever no chills Related Data Home Medications Medication Instructions Recorded Confirmed No Known Home Meds 08/27/22 08/27/22 Allergies Allergy/AdvReac Type Severity Reaction Status Date / Time No Known Allergies Allergy Verified 08/17/22 00:21 [No Known Allergies*] Review of Systems Review of Systems: Yes all other systems are reviewed and are negative [facility] Past Medical History Medical History Chronic headaches Dysphagia History of COVID-19 Surgical History History of esophagogastroduodenoscopy (EGD) Family History Family History Father Prostate CA Social History Social History Alcohol intake: never Patient Tobacco Use Status: Never used Tobacco Substance Use Type: Marijuana Advance Directives: No Advance Directives Information Provided: Yes Physical Exam Vital Signs: Vital Signs: Last Vital Signs Temp 97.6 F 11/07/22 05:40 Pulse 67 11/07/22 05:40 Resp 20 11/07/22 05:40 BP 109/63 11/07/22 05:40 Pulse Ox 100 11/07/22 05:40 O2 Del Method 11/07/22 05:40 BMI result Body Mass Index 20.7 Appearance: Alert. Oriented X3. No acute distress. ENT: Pharynx normal. Oral Mucosa moist Neck: Normal inspection. Neck supple. CVS: Normal heart rate and rhythm. Pulses normal. Respiratory: No respiratory distress. Equal air entry bilateral, no wheezing/rales/rhonchi Abdomen: Soft and nontender. Bowel sounds are present, no mass palpable, no CVA tenderness pelvic: Patient refused Skin: Skin warm and dry. Normal skin color. Normal skin turgor. Extremities: No lower extremity edema. No calf tenderness Neuro: Oriented X 3. Medical Decision Making Medical Decision Making [facility] Narrative: Patient UA is negative patient refused pelvic exam very rude to the staff discharge patient home advised to follow with a straight line edger Lab Data [facility] Lab Attestation statement: I reviewed the patient's lab results. Labs: Lab Results 11/07/22 11/07/22 Range/Units 02:50 02:50 Urine Color Yellow Urine Appearance Clear Urine pH 7.0 (5.0-9.0) Ur Specific Revloc 1.015 (1.005-1.025) Urine Protein Trace (Neg-Trace) mg/dL Urine Glucose (UA) Negative (Negative) mg/dL Urine Ketones Negative (Negative) mg/dL Urine Blood Negative (Negative) Urine Nitrite Negative (Negative) Ur Leukocyte Esterase Negative (Negative) Urine Test NEGATIVE (NEGATIVE) Discharge Plan Discharge Clinical Impression: Dysuria Patient Disposition: Elopement Instructions: Dysuria (ED) Additional Instructions: Follow-up with straight line edger for pelvic exam and further management Prescriptions: No Action No Known Home Meds Interventions: ED Discharge Assessment Last Done: 11/07/22 05:51 Discharge Date/Time: 11/07/22 05:53
--- NOTE | 2022-11-07 05:53 | PC.NURSE ---
Please see the documentation for further information.
[2022-11-07 06:09] LABS: UPreg QC Valid YES; Urine Pregnancy NEGATIVE (NEGATIVE)
[2022-11-07 06:10] LABS: Appearance Urine Clear; Color Urine Yellow; Glucose Urine UA Negative (Negative); Leukocyte Esterase Urine Negative (Negative); Nitrite Urine Negative (Negative); Specific Gravity - Urine 1.015 (1.005-1.025); Urine Blood Negative (Negative); Urine Ketones Negative (Negative); Urine Protein Trace mg/dL (Neg-Trace)
== END 2022-11-07 05:53 | disposition left against medical advice (07) ==
PROVIDERS: Emergency Provider Internal Medicine
DX: R30.0 Dysuria (principal); F12.90 Cannabis use, unspecified, uncomplicated
CPT/HCPCS: 81003; 81025; 99282

== ENCOUNTER → 2022-11-18 15:05 | Outpatient (BNVA) | payer MEDICAID, SELFPAY | PROVIDERS: Visit Provider Internal Medicine Gastroenterology | DX: R13.10 Dysphagia, unspecified (principal); E46 Unspecified protein-calorie malnutrition | CPT/HCPCS: 99212 ==

== ENCOUNTER 2022-11-18 15:19 | Outpatient (REF) | payer MEDICAID, SELFPAY ==
[2022-11-22 13:46] LABS: H Pylori Breath Test Negative (Negative)
== END 2022-11-18 15:20 | disposition home or self-care (01) ==
LOC: HO.LNP 15:19
PROVIDERS: Visit Provider Internal Medicine Gastroenterology
DX: E46 Unspecified protein-calorie malnutrition (principal)
CPT/HCPCS: 83013

== ENCOUNTER → 2022-12-20 11:45 | Outpatient (BNVA) | payer MEDICAID, SELFPAY | PROVIDERS: Visit Provider Internal Medicine Gastroenterology ==

== ENCOUNTER 2023-02-01 00:49 | Emergency (ER) | payer MEDICAID, SELFPAY ==
[2023-02-01 00:51] VITALS: BP 112/70; PULSE 84; RESP 18; TEMP 36.1; O2SAT 100; BMI 22.3
[2023-02-01 01:53] LABS: Influenza A PCR NEGATIVE (Negative); Influenza B PCR NEGATIVE (Negative); Resp Syncy Virus RNA Qual PCR NEGATIVE (Negative); SARS COV2 PCR INHOUSE NEGATIVE (Negative)
--- NOTE | 2023-02-01 02:16 | PC.NURSE ---
c/o congestion no relief for last 2 wks, doesn't feel like she is getting any better aox4 no apparent distress
--- NOTE | 2023-02-01 02:17 | PC.NURSE ---
no sob, airway patent able to speak in full sentences
--- NOTE | 2023-02-01 02:50 | ED_ITS ---
HPI - URI/Sore Throat General Chief Complaint: Upper Respiratory Symptoms Stated Complaint: Congested Time Seen by Provider: 02/01/23 01:51 History of Present Illness HPI Narrative: Patient is a 22-year-old female present today with having nasal congestion for about a month. There is no fever no chills. No diaphoresis. Patient from home. No coughing congestion upper respiratory symptoms. Patient is vaccinated for COVID. Related Data Previous Rx's Medication Instructions Recorded baclofen 5 mg/5 mL oral solution 10 mg (10 mL) PO BEDTIME 30 days 11/18/22 #300 mL food supplemt, lactose-reduced 1 ea PO TID 30 days #90 bottles 11/18/22 (Ensure Original oral liquid) omeprazole 40 mg capsule,delayed 40 mg PO BID 30 days #60 caps 11/18/22 release omeprazole magnesium 10 mg oral 20 mg PO BID #60 ea 01/24/23 suspension,delayed release fluticasone propionate 50 2 spray intranasal DAILY 02/01/23 mcg/actuation nasal congestion #16 grams spray,suspension (24 Hour Allergy Relief) Allergies Allergy/AdvReac Type Severity Reaction Status Date / Time No Known Allergies Allergy Verified 11/18/22 15:10 [No Known Allergies*] Review of Systems Review of Systems: Positive nasal congestion Yes all other systems are reviewed and are negative PMFSH Past Medical History Attestation statement: The following information was validated with the patient. Medical History Chronic headaches Dysphagia History of COVID-19 Surgical History History of esophagogastroduodenoscopy (EGD) Family History Family History Father Prostate CA Social History Social History Alcohol intake: never Patient Tobacco Use Status: Never used Tobacco Substance Use Type: Marijuana Advance Directives: No Advance Directives Information Provided: Yes Physical Exam Vital Signs: Vital Signs: Last Vital Signs Temp 96.9 F 02/01/23 00:51 Pulse 84 02/01/23 00:51 Resp 18 02/01/23 00:51 BP 112/70 02/01/23 00:51 Pulse Ox 100 02/01/23 00:51 O2 Del Method Room Air 02/01/23 00:51 BMI result Body Mass Index 22.3 Appearance: Alert. Oriented X3. No acute distress. Eyes: Pupils equal, round and reactive to light. ENT: Pharynx normal. Neck: Normal inspection. Neck supple. No lymph nodes noted. No crepitus CVS: Normal heart rate and rhythm. Pulses normal. Normal S1 and S2 Respiratory: No respiratory distress. Breath sounds normal. No Wheezing. No rales Abdomen: Soft and nontender. No rigidity. No distention. good BS x4 Skin: Skin warm and dry. Normal skin color. Normal skin turgor. Extremities: No lower extremity edema. Neurovascular intact to all extremities. No Lacerations. No Rash Neuro: Oriented X 3. No motor deficit. No sensory deficit. Moving all extermities. No slurred speech Medical Decision Making Medical Decision Making [facility] Narrative: Well-appearing not acute distress. Lungs are clear. O2 sat is normal. Positive nasal congestion. Question secondary to seasonal allergies. Patient's COVID RSV flu are all negative. Will give Flonase. If patient is unable to take any antihistamines. In stable condition. Lab Data [facility] Lab Attestation statement: I reviewed the patient's lab results. Labs: Lab Results 02/01/23 Range/Units 01:13 Influenza Type A (PCR) NEGATIVE (Negative) Influenza Type B (PCR) NEGATIVE (Negative) RSV RNA Qual (PCR) NEGATIVE (Negative) SARS-CoV-2 RNA (RT-PCR) NEGATIVE (Negative) Discharge Plan Discharge Clinical Impression: Acute seasonal allergic rhinitis Patient Disposition: Home, Self-Care Instructions: Allergic Rhinitis (ED) Prescriptions: New fluticasone propionate [24 Hour Allergy Relief] 50 mcg/actuation spray,suspension 2 spray intranasal DAILY Qty: 16 0RF Rx Instructions: administer into each nostril No Action omeprazole magnesium 10 mg susp,delayed release for recon 20 mg PO BID Qty: 60 3RF baclofen 5 mg/5 mL solution 10 mg PO BEDTIME 30 Days Qty: 300 2RF omeprazole 40 mg capsule,delayed release(DR/EC) 40 mg PO BID 30 Days Qty: 60 2RF Ensure Original Liquid 1 ea PO TID 30 Days Qty: 90 2RF Rx Instructions: vanilla flavor
--- NOTE | 2023-02-01 03:04 | PC.NURSE ---
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
--- NOTE | 2023-02-01 03:04 | PC.NURSE ---
pt left before receiving discharge instructions
--- NOTE | 2023-02-01 03:07 | PC.NURSE ---
pt left before last set of vs assessed
== END 2023-02-01 03:05 | disposition home or self-care (01) ==
PROVIDERS: Emergency Provider Emergency Medicine Emergency Medical Services; PCP Registered Nurse
DX: J30.2 Other seasonal allergic rhinitis (principal); Z20.822 Contact with and (suspected) exposure to COVID-19; Z20.828 Contact with and (suspected) exposure to other viral communicable diseases
CPT/HCPCS: 0241U; 99282; 99283

== ENCOUNTER 2023-04-17 11:25 | Outpatient (REF) | payer MEDICAID, SELFPAY ==
[2023-04-17 14:21] LABS: HCG Quantitative 421 mIU/mL
== END 2023-04-17 11:26 | disposition home or self-care (01) ==
LOC: HO.HHCL 11:25
PROVIDERS: Visit Provider Registered Nurse
DX: Z32.01 Encounter for pregnancy test, result positive (principal)
CPT/HCPCS: 36415; 84702

== ENCOUNTER 2023-04-22 14:39 | Outpatient (REF) | payer MEDICAID, SELFPAY ==
[2023-04-22 16:52] LABS: HCG Quantitative 3288 mIU/mL
== END 2023-04-22 14:40 | disposition home or self-care (01) ==
LOC: HO.HHCL 14:39
PROVIDERS: Visit Provider Registered Nurse
DX: Z34.90 Encounter for supervision of normal pregnancy, unspecified, unspecified trimester (principal)
CPT/HCPCS: 36415; 84702